=== PATIENT | male | born 1980 | race Caucasian/White ===

== ENCOUNTER 2022-05-19 14:41 | Emergency (ER) | payer OTHER, MEDICAID, SELFPAY ==
[2022-05-19 14:32] VITALS: BP 152/113; PULSE 94; RESP 20; TEMP 36.6; O2SAT 99; BMI 26.6
--- NOTE | 2022-05-19 14:35 | PC.NURSE ---
1428 ED MD AT BEDSIDE FOR EVALUATION 1429 REMOVED FROM BACKBOARD BY MD AT THIS TIME PLAN OF CARE EXPLAINED. PT PROVIDED WARM BLANKET
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
--- NOTE | 2022-05-19 14:53 | PC.NURSE ---
PT TO XR AT THIS TIME
[2022-05-19 15:30] VITALS: BP 153/96; PULSE 92; RESP 15; O2SAT 100
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
--- NOTE | 2022-05-19 16:12 | PC.NURSE ---
notified ER pt reports he feels like something is in her L eye.
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
--- NOTE | 2022-05-19 16:36 | PC.NURSE ---
ED MD AT BEDSIDE TO ASSES PT FURTHER. PT C/O EYE IRRITATION
[2022-05-19 17:22] VITALS: BP 123/95; PULSE 103; RESP 16; TEMP 36.6; O2SAT 100
== END 2022-05-19 17:23 | disposition home or self-care (01) ==
PROVIDERS: Emergency Provider Emergency Medicine
DX: S13.4XXA Sprain of ligaments of cervical spine, initial encounter (principal); S73.102A Unspecified sprain of left hip, initial encounter; S05.02XA Injury of conjunctiva and corneal abrasion without foreign body, left eye, initial encounter; V49.50XA Passenger injured in collision with unspecified motor vehicles in traffic accident, initial encounter
CPT/HCPCS: 72125; 73502; 99284